=== PATIENT | female | born 1990 | race Caucasian/White ===

== ENCOUNTER 2018-01-04 20:04 | Emergency (ER) | payer OTHER ==
[2018-01-04 20:11] VITALS: RESP 16
[2018-01-04 20:50] LABS: APPEARANCE,URINE Clear; BILIRUBIN,URINE NEGATIVE (NEGATIVE); GLUCOSE, URINE (UA) NEGATIVE (NEGATIVE); KETONES,URINE NEGATIVE (NEGATIVE); LEUKOCYTE ESTERASE ,URINE NEGATIVE (NEGATIVE); NITRATE,URINE NEGATIVE (NEGATIVE); OCCULT BLOOD,URINE NEGATIVE (NEG-TRACE); PH,URINE 6.5; UROBILINOGEN,URINE 0.2 (0.2-1.0 EU)
[2018-01-04 21:05] LABS: COLOR,URINE Dark Yellow
[2018-01-04 21:06] LABS: BACTERIA 2+ (< 1+); CRYSTALS NEGATIVE (0-3 AVE/HPF); EPITHELIAL CELLS 0-2 (SQUAMOUS); RBC,URINE NEGATIVE (0-3AV/HPF)
[2018-01-04] MEDS ORDERED: DOXYCYCLINE 100 MG TAB ONE (21:55)
[2018-01-04] MEDS: DOXYCYCLINE 100 MG TAB PO ONE (21:57)
[2018-01-04 22:02] VITALS: BP 127/77; PULSE 85; O2SAT 98
[2018-01-04 22:03] VITALS: TEMP 98.6
== END 2018-01-04 22:05 | disposition home or self-care (01) ==
LOC: ED 20:04
DX: N76.0 Acute vaginitis (principal)
CPT/HCPCS: 81001; 84703; 87088; 87205; 87210; 99282; 99284; A9270-GY